=== PATIENT | female | born 1970 | race Caucasian/White ===

== ENCOUNTER 2017-11-19 21:42 | Emergency (ER) | payer OTHER ==
[2017-11-19] MEDS: HYDROCODONE/APAP (5/325) TAB PO (22:59)
== END 2017-11-19 22:59 | disposition home or self-care (01) ==
LOC: FTE 21:42
DX: K64.4 Residual hemorrhoidal skin tags (principal)
CPT/HCPCS: 99284; Z7502

== ENCOUNTER 2018-09-14 11:12 | Emergency (ER) | payer OTHER ==
[2018-09-14 14:27] LABS: ADD MAN DIFF? NO
[2018-09-14 14:47] LABS: BASOPHILS % 0.4 % (0.0-2.0); EOSINOPHILS # 0.1 10^3/ul (0.0-0.5); EOSINOPHILS % 1.2 % (0.0-7.0); HEMATOCRIT 44.1 % (37.0-47.0); HEMOGLOBIN 14.7 g/dl (12.0-16.0); LYMPHOCYTES # 2.1 10^3/ul (0.8-2.9); LYMPHOCYTES % 41.2 % (15.0-51.0); MEAN CORPUSCULAR HEMOGLOBIN 29.9 pg (29.0-33.0); MEAN CORPUSCULAR HGB CONC 33.3 g/dl (32.0-37.0); MEAN CORPUSCULAR VOLUME 89.8 fl (82.0-101.0); MEAN PLATELET VOLUME 11.6 fl (7.4-10.4); MONOCYTE # 0.4 10^3/ul (0.3-0.9); MONOCYTES % 8.3 % (0.0-11.0); NEUTROPHIL # 2.5 10^3/ul (1.6-7.5); NEUTROPHILS % 48.7 % (39.0-77.0); PLATELET COUNT 233 10^3/UL (140-415); RED BLOOD COUNT 4.91 10^6/ul (4.20-5.40); RED CELL DISTRIBUTION WIDTH 11.9 % (11.5-14.5)
[2018-09-14 14:52] LABS: ANION GAP 11 (5-13); BLOOD UREA NITROGEN 12 mg/dl (7-20); CALCIUM 9.3 mg/dl (8.4-10.2); CARBON DIOXIDE 26 mmol/L (21-31); CHLORIDE 105 mmol/L (97-110); CREATININE 0.54 mg/dl (0.44-1.00); Estimated GFR > 60 mL/min (>60); GLUCOSE 107 mg/dl (70-220); POTASSIUM 4.2 mmol/L (3.5-5.1); SODIUM 142 mmol/L (135-144)
[2018-09-14 15:04] LABS: TROPONIN-I < 0.012 ng/ml (0.000-0.120)
[2018-09-14 17:19] LABS: TROPONIN-I < 0.012 ng/ml (0.000-0.120)
== END 2018-09-14 17:58 | disposition home or self-care (01) ==
LOC: E/R 11:12
DX: R07.9 Chest pain, unspecified (principal); R06.02 Shortness of breath; R53.83 Other fatigue; R05 Cough; I10 Essential (primary) hypertension; F17.210 Nicotine dependence, cigarettes, uncomplicated
CPT/HCPCS: 36415; 71045; 80048; 84484; 85025; 93005; 99285-25

== ENCOUNTER 2018-12-29 12:19 | Emergency (ER) | payer OTHER ==
[2018-12-29] MEDS: LIDOCAINE/MYLANTA 40 ML BTL PO (14:02)
[2018-12-29] MEDS: FAMOTIDINE 20 MG TAB PO (14:02)
== END 2018-12-29 14:42 | disposition home or self-care (01) ==
LOC: FTE 14:42
DX: R10.13 Epigastric pain (principal); I10 Essential (primary) hypertension; F17.210 Nicotine dependence, cigarettes, uncomplicated
CPT/HCPCS: 99283; Z7502